=== PATIENT | female | born 1950 | race Caucasian/White ===

== ENCOUNTER 2018-08-25 10:45 | Inpatient (IN) | payer BC ==
[~2018-08-25] VITALS: Ht 167.6 cm; Wt 118.9 kg
[~2018-08-25 10:45] MED LIST: AMOXICILLIN500 MG PO; ASPIRIN PO; B-12500 MCG PO; CALCIUM 500 +1 EAC2; CITALOPRAM HBR40 MG PO; GLUCOSAMINE CH1 EAC5 PO; LIPITOR10 MG PO; LORAZEPAM2 MG PO; MELOXICAM7.5 MG PO; MULTIVITAMIN PO; RAMIPRIL10 MG PO; ULTRAM 50MG50 MG PO; VAGIFEM10 MCG PO
[2018-08-25] MEDS ORDERED: MULTIVITAMINS1 EAC5 PO (11:22)
[2018-08-25] MEDS ORDERED: METOPROLOL TART25 MG PO (11:22)
[2018-08-25] MEDS ORDERED: CLONAZEPAM0.5 MG PO (11:22)
[2018-08-25] MEDS ORDERED: FERROUS SULFAT325 MG PO (11:22)
[2018-08-25] MEDS ORDERED: COENZYME Q1010 MG PO (11:22)
[2018-08-25] MEDS ORDERED: SODIUM CHLORIDE 0.9% 1000ML 1,000 ML IV STA (11:48)
[2018-08-25 12:47] LABS: BASOPHILS # (AUTO) 0.1 (0.0-0.1); BASOPHILS % 0.5 % (0.0-1.0); EOSINOPHILS # (AUTO) 0.1 (0.0-0.4); EOSINOPHILS % 0.8 % (0.0-6.0); HEMATOCRIT 36.9 % (34.2-44.1); HEMOGLOBIN 12.6 g/dL (12.0-16.0); LYMPHOCYTES # (AUTO) 1.2 (1.0-3.2); LYMPHOCYTES % 9.6 % (18.0-39.1); MEAN CORPUSCULAR HEMOGLOBIN 32.4 pg (28-32); MEAN CORPUSCULAR HGB CONC 34.1 g/dL (31-35); MEAN CORPUSCULAR VOLUME 94.9 fL (81-99); MONOCYTES # (AUTO) 1.2 (0.2-0.8); MONOCYTES % 9.4 % (4.4-11.3); NEUTROPHILS # (AUTO) 10.2 (2.1-6.9); NEUTROPHILS % 79.3 % (38.7-80.0); PLATELET COUNT 289 x10e3/uL (140-360); RED BLOOD COUNT 3.89 x10e6/uL (3.6-5.1); RED CELL DISTRIBUTION WIDTH 11.5 % (11.7-14.4)
[2018-08-25 13:00] LABS: ALANINE AMINOTRANSFERASE 19 IU/L (0-55); ALBUMIN 2.7 g/dL (3.5-5.0); ALBUMIN/GLOBULIN RATIO 0.8 (0.8-2.0); ALKALINE PHOSPHATASE 64 IU/L (40-150); ANION GAP 13.9 mmol/L (8-16); BLOOD UREA NITROGEN 6 mg/dL (7-26); BUN/CREATININE RATIO 7 (6-25); CALCIUM 8.9 mg/dL (8.4-10.2); CARBON DIOXIDE 27 mmol/L (22-29); CHLORIDE 95 mmol/L (98-107); CREATININE, SERUM 0.84 mg/dL (0.57-1.11); EST GLOMERULAR FILTRATION RATE > 60 ML/MIN (60-); GLUCOSE 107 mg/dL (74-118); SODIUM 133 mmol/L (136-145)
[2018-08-25 13:10] LABS: POTASSIUM 2.9 mmol/L (3.5-5.1)
[2018-08-25 13:11] LABS: AMYLASE 16 U/L (25-125); LIPASE 8 U/L (8-78)
[2018-08-25] MEDS ORDERED: POTASSIUM CHLORIDE 20 MEQ TAB CR PO NR (13:45)
[2018-08-25 13:47] LABS: OCCULT BLOOD STOOL POSITIVE (NEGATIVE)
[2018-08-25 15:18] LABS: C DIFFICILE TOXIN A&B AMP PROB **POSITIVE** (NEGATIVE)
--- NOTE | 2018-08-25 15:40 | Diagnostic Imaging Report ---
EXAM: CT Abdomen and Pelvis WITH contrast INDICATION: ^low abd pain profuse diarrhea ^[id number] ^1430 ^N COMPARISON: None. TECHNIQUE: Abdomen and pelvis were scanned utilizing a multidetector helical scanner from the lung base to the pubic symphysis after administration of IV contrast. Coronal and sagittal reformations were obtained. Routine protocol was performed. Scan was performed when during portal venous phase. IV CONTRAST: 100 mL of Isovue-370 ORAL CONTRAST: Water RADIATION DOSE: Total DLP: 850.7 mGy*cm Estimated effective dose: (DLP x 0.015 x size factor) mSv COMPLICATIONS: None FINDINGS: LINES and TUBES: None. LOWER THORAX: Small to moderate hiatal hernia. HEPATOBILIARY: Hepatomegaly. The liver measures 24 cm in length in the craniocaudal dimension. No focal hepatic lesions. No biliary ductal dilation. GALLBLADDER: No radio-opaque stones or sludge. No wall thickening. SPLEEN: No splenomegaly. PANCREAS: No focal masses or ductal dilatation. ADRENALS: 1.5 cm indeterminate left adrenal gland nodule on series 2, image 23. The right adrenal gland is normal. KIDNEYS/URETERS: Kidneys enhance symmetrically. No hydronephrosis. No cystic or solid mass lesions. No stones. GI TRACT: Diffuse wall thickening of the sigmoid colon and rectum with surrounding fat stranding and hyperemia without diverticulosis. The remaining bowel is unremarkable. Appendix is normal. PELVIC ORGANS/BLADDER: Unremarkable. LYMPH NODES: No lymphadenopathy. VESSELS: The abdominal aorta and pelvic arteries are normal in caliber and associated with mild atherosclerotic calcifications. Bilateral renal stents. Patency cannot be evaluated on this exam. Celiac trunk and SMA are patent with associated mild nonobstructing atherosclerotic calcifications. PERITONEUM / RETROPERITONEUM: No free air or fluid. BONES: Right hip replacement. SOFT TISSUES: Calcified granulomata in the soft tissues of the right thigh likely related to prior injection. IMPRESSION: 1. Acute inflammatory versus infectious proctocolitis. Recommend follow-up CT abdomen and pelvis after treatment is completed. - No free air or free fluid in the abdomen and pelvis. - No diverticulosis. 2. Indeterminate left adrenal gland nodule (1.5 cm). Recommend ambulatory CT or MRI abdomen with and without contrast arteriogram protocol for further evaluation. Signed by: Dr. Mindy Agudelo M.D. on 08/25/2018 3:36 PM
[2018-08-25 16:28] LABS: BAND NEUTROPHILS % (MANUAL) 5 %; LYMPHOCYTES % (MANUAL) 12 % (19-48); MONOCYTES % (MANUAL) 5 % (3.4-9.0); NEUTROPHILS % (MANUAL) 77 % (40-74); PLATELET ESTIMATE ADEQUATE; PLATELET MORPHOLOGY COMMENT NORMAL; RBC MORPHOLOGY COMMENT NORMAL
[2018-08-25] MEDS ORDERED: METRONIDAZOLE 500MG/NS 100ML 100 ML IV ONE (16:40)
[2018-08-25] MEDS ORDERED: MORPHINE SULFATE 2 MG/ML SYR IV PRN (17:30)
[2018-08-25] MEDS: METRONIDAZOLE 500MG/NS 100ML IV SCH (17:37)
[2018-08-25] MEDS: VANCOMYCIN 250MG/5ML ORAL SOLN PO SCH (17:56)
[2018-08-25] MEDS: D5.45%NS/KCL 20MEQ 1,000 ML IV SCH (17:56)
--- OUTSIDE RECORDS SUMMARY | 2018-08-25 18:02 | XMS REPORT | Clinical Summary ---
Author Author [facility] Organization [facility] Address Unknown Phone Unavailable Care Team Providers Care Merchandise Deliverer Name Role Phone Laureen Miranda DO PCP Allergies Not on File Current Medications Not on file Active Problems Not on file Encounters Date Type Specialty Care Team Description 01/12/2018 [facility] Laureen Miranda, Transient arthropathy, Encounter pelvic region and thigh, right 01/12/2018 [facility] Radiology Laureen Miranda DO Low back pain, Encounter unspecified back pain laterality, unspecified chronicity, with sciatica presence unspecified 01/12/2018 [facility] Radiology Laureen Miranda DO Postmenopausal status Encounter (age-related) (natural) 01/12/2018 [facility] Laureen Miranda DO Low back pain, Orders unspecified back pain laterality, unspecified chronicity, with sciatica presence unspecified (Primary Dx); Transient arthropathy, pelvic region and thigh, right 01/11/2018 [facility] Laureen Miranda DO Postmenopausal status Orders (age-related) (natural) (Primary Dx) 11/10/2017 [facility] Radiology Laureen Miranda DO Screening breast Encounter examination 09/20/2017 [facility] Laureen Miranda DO Screening breast Orders examination (Primary Dx) after 08/24/2017 Social History Tobacco Use Types Packs/Day Years Used Date Never Assessed Sex Assigned at Date Recorded Not on file Last Filed Vital Signs Not on file Plan of Treatment Health Maintenance Due Date Last Done Comments CERVICAL CANCER SCREENING 1973 COLON CANCER SCREENING 2002 SHINGRIX VACCINE (#1) 2002 ZOSTER VACCINE 2012 PNEUMOCOCCAL 2017 POLYSACCHARIDE VACCINE AGE 65 AND OVER PNEUMOCOCCAL-13 2017 INFLUENZA VACCINE 05/18/2018 BREAST CANCER SCREENING 11/10/2019 11/10/2017 Procedures Procedure Name Priority Date/Time Associated Diagnosis Comments XR HIP 4 VIEWS RIGHT Routine 01/12/2018 Transient arthropathy, Results for this 12:26 PM CDT pelvic region and thigh, procedure are in the right results section. XR LUMBAR SPINE COMPLETE Routine 01/12/2018 Low back pain, Results for this 4+ VW 12:25 PM CDT unspecified back pain procedure are in the laterality, unspecified results section. chronicity, with sciatica presence unspecified BONE DENSITY Routine 01/12/2018 Postmenopausal status Results for this 11:42 AM CDT (age-related) (natural) procedure are in the results section. MAMMO SCREENING W CAD Routine 11/10/2017 Screening breast Results for this BILATERAL 10:44 AM NEWSAGENT examination procedure are in the results section. after 08/24/2017 Results * XR Hip 4 Views Right (01/12/2018 12:26 PM) Narrative Performed At Title:Right hip [facility] Reason for exam:M12.851 Other specific arthropathiesnot elsewhere classifiedright hip, ARTHRITISHIP Comparison studies: CT right hip Impression: 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 There is no breakage or displacement of the hardware. The sacroiliac joints are unremarkable. The iliac, pubic and ischial bones are unremarkable. The left hip is incidentally unremarkable. [id number] Procedure Note Hm Interface, Radiology Results Incoming - 01/12/2018 2:14 PM CDT Title:Right hip Reason for exam:M12.851 Other specific arthropathies not elsewhere classified right hip, ARTHRITIS HIP Comparison studies: CT right hip Impression: 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 There is no breakage or displacement of the hardware. The sacroiliac joints are unremarkable. The iliac, pubic and ischial bones are unremarkable. The left hip is incidentally unremarkable. [id number] Performing Organization Address City/State/Zipcode Phone Number [facility] [address] [place] [address] * XR Lumbar Spine Complete 4+ Vw (01/12/2018 12:25 PM) Narrative Performed At EXAMINATION:XR LUMBAR SPINE COMPLETE 4VW [facility] CLINICAL HISTORY:M54.5 Low back pain, LOW BACK PAINUNCOMPLICATEDNO RED FLAG SIGNS SYMPTOMS HISTORY COMPARISON:None. IMPRESSION: There is mild congenital lumbar spinal canal stenosis with decrease in the transverse diameter of the spinal canal. There is mild diffuse disc space narrowing throughout the lumbar spine. There is grade 1 degenerative anterolisthesis at L4-5 with prominent underlying facet joint degenerative changes especially on the right. There is mild levo rotoscoliosis. There is no evidence of compression fracture. [facility]-[id number] Procedure Note Hm Interface, Radiology Results Incoming - 01/12/2018 2:26 PM CDT EXAMINATION: XR LUMBAR SPINE COMPLETE 4 VW CLINICAL HISTORY: M54.5 Low back pain, LOW BACK PAIN UNCOMPLICATED NO RED FLAG SIGNS SYMPTOMS HISTORY COMPARISON: None. IMPRESSION: There is mild congenital lumbar spinal canal stenosis with decrease in the transverse diameter of the spinal canal. There is mild diffuse disc space narrowing throughout the lumbar spine. There is grade 1 degenerative anterolisthesis at L4-5 with prominent underlying facet joint degenerative changes especially on the right. There is mild levo rotoscoliosis. There is no evidence of compression fracture. [facility]-[id number] Performing Organization Address City/State/Zipcode Phone Number [facility] [address] [place] [address] * Bone Density (01/12/2018 11:42 AM) Narrative Performed At EXAMINATION:[facility] CLINICAL HISTORY:Z78.0 Asymptomatic menopausal state, postmenopausal status COMPARISON:None. The results of this study expressed as bone mineral density (BMD) were as follows: AP spine (L1-L4) BMD: 1.45 g/cm2 T-Score: 2.1 Percent change from previous:NA Dual Femur (Total Mean): BMD: 0.92 g/cm2 T-Score: -0.7 Percent change from previous:NA Forearm (Radius 33%): BMD: NA g/cm2 T-Score: NA Percent change from previous:NA Dual femur FRAX: Risk factors: Current tobacco use 10 year probability of fracture: 1.Major osteoporotic: 7.9% 2.Hip: 1.3% Impression: Bone mineral density values as above. No osteoporosis or osteopenia. A copy of this scans including a report detailing these results will follow. Note: The world health organization (WHO) has classified the patient's T-score as follows: Normal:T score at or above -1.0 Osteopenia:T score between -1.0 and -2.5 Osteoporosis:T score at or below -2.5 (osteoporosis, increased fracture risk) [facility]-[id number] Procedure Note Interface, Radiology Results Incoming - 01/12/2018 3:41 PM CDT EXAMINATION: BONE DENSITY CLINICAL HISTORY: Z78.0 Asymptomatic menopausal state, postmenopausal status COMPARISON: None. The results of this study expressed as bone mineral density (BMD) were as follows: AP spine (L1-L4) BMD: 1.45 g/cm2 T-Score: 2.1 Percent change from previous: NA Dual Femur (Total Mean): BMD: 0.92 g/cm2 T-Score: -0.7 Percent change from previous: NA Forearm (Radius 33%): BMD: NA g/cm2 T-Score: NA Percent change from previous: NA Dual femur FRAX: Risk factors: Current tobacco use 10 year probability of fracture: 1. Major osteoporotic: 7.9% 2. Hip: 1.3% Impression: Bone mineral density values as above. No osteoporosis or osteopenia. A copy of this scans including a report detailing these results will follow. Note: The world health organization (WHO) has classified the patient's T-score as follows: Normal: T score at or above -1.0 Osteopenia: T score between -1.0 and -2.5 Osteoporosis: T score at or below -2.5 (osteoporosis, increased fracture risk) [facility]-[id number] Performing Organization Address City/State/Zipcode Phone Number [facility] [address] [place] [address] * Mammo Screening w Cad Bilateral (11/10/2017 10:44 AM) Narrative Performed At PROCEDURE: MAMMO [facility]CREENING [facility] CAD [facility]AL [facility] Computer-assisted detection was utilized inthe interpretation of this exam. COMPARISON: No prior outside facility mammograms from [facility] TECHNIQUE: Bilateral digital screening mammogram was performed and interpreted using computer-assisted detection. HISTORY: Asymptomatic routine screening. Family History: No known family history. FINDINGS: BreastComposition: There are scattered areas of fibroglandular density ( category B). No suspicious mass , architectural distortion or suspicious microcalcifications are present. There are scattered bilateral benign morphology breast calcifications. IMPRESSION: No mammographic evidence of malignancy. Birads Category 2. Benign. RECOMMENDATIONS:If the clinical breast examination is unchanged and normal , annual screening mammography is recommended per ACS and ACR guidelines. PATIENT INFORMATION HAS BEEN ENTERED INTO A REMINDER SYSTEM WITH TARGET DUE DATE FOR THE NEXT MAMMOGRAM. NOTE: This facility is a designated [facility] ( [facility]) , meeting standards of accreditation in all modalities of breast imaging. This facility is accredited by The [employer] for Mammography. A negative x-ray report should not delay biopsy if a dominant or clinically suspicious mass is present. Not all cancers are identified by x-ray. [id number] Performing Organization Address City/State/Zipcode Phone Number [employer] [address] [place] [address] after 08/24/2017 Insurance Payer Benefit Subscriber ID Type Phone Address Plan / Group BCBS BCBS xxxxxxxxxxxx PPO CHOICE PPO/[employer] [employer] PPO
--- OUTSIDE RECORDS SUMMARY | 2018-08-25 18:02 | XMS REPORT ---
Author Author Admin, Friend[facility] Organization [facility] Address Unknown Phone Unavailable Allergies, Adverse Reactions, Alerts Allergy Name Reaction Description Start Date Severity Status Provider No Known Allergies Adrianna Xie SHOVEL LOADER OPERATOR Conditions or Problems Problem Name Problem Code Onset Date Status Entry Date Provider Comment Standard Description Annotate Hidradenitis suppurativa 705.83 Active Laureen Krish Pariani DO Hidradenitis Hx of colon polyps V12.72 Active Laureen Krish Pariani DO Personal history of colonic polyps gets colonoscopy q 2 yrs per ptn Screening for ovarian cancer V76.46 Active Laureen Krish Pariani DO Screening for malignant neoplasms of the ovary Screening Pap smear exam for cervical cancer V76.2 Active Laureen Krish Pariani DO Screening for malignant neoplasms of the cervix Sebaceous cyst 706.2 Active Laureen Krish Pariani DO Sebaceous cyst Aortic stenosis 424.1 Active Laureen Krish Pariani DO Aortic valve disorders 07/02 Echo: mod (WYATT 1.1 cm) Cards: Dr. Murphy Asymptomatic postmenopausal status (age-related) (natural) V49.81 Active Laureen Krish Agudeloani DO Asymptomatic postmenopausal status (age-related) (natural) CAD 414.00 Active Laureen Krish Jammieani DO Coronary atherosclerosis of unspecified type of vessel, [place] or graft Cards: Dr. Murphy 10/27 CathL 60-70 % dominant LCX stenosis rec: med mgnt Diastolic dysfunction 429.9 Active Laureenquin Miranda DO Heart disease, unspecified 03/03 Echo: Grade 2 diastolic dysfn Hip joint pain, left 719.45 Active Laureen Miranda DO Pain in joint involving pelvic region and thigh s/p R hip joint replacement Ortho: Dr. Xie (old) Ortho: Dr. Irizarry (new) Incontinence, mixed, urge/stress 788.33 Active Laureen Miranda DO Mixed incontinence (female) (male) wears pads at night Uro: Dr. Zapien Lower back pain 724.2 Active Laureen Miranda DO Lumbago 01/02 xray: grade 1 degen anterolisthesis @ L5-L5 w/ promiment underlying facet joint degen changes on the R Obesity Active Laureen Rutherford Jammiejoss DO Obesity, unspecified PVC 427.69 Active Laureen Miranda DO Other premature beats Cards: Dr. Murphy Anxiety 300.00 Active Laureen Miranda Anxiety state, unspecified Psychiatry: Dr. Moe Choi 01/10/18 GAD7=4 (tx: Citalopram 80 mg, Clonazepam 2mg TID) Arthritis, right hip 716.95 Active Laureen Miranda Arthropathy unspecified, involving pelvic region and thigh s/p R hip replacment regular water aerobics Depression 311 Active Laureen Miranda Depressive disorder, not elsewhere classified Psychiatry: Dr. 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 Giana Hodge Hx of iron deficiency anemia V12.3 Active Laureen Miranda DO Personal history of diseases of blood and blood-forming organs Hypercholesterolemia 272.0 Active Laureen Miranda DO Pure hypercholesterolemia 09/03 Low HDL Hypertension 401.9 Active Laureen Miranda DO Unspecified essential hypertension Cardio: Dr. Burke Murphy [facility] care V70.0 Active Laureen Miranda DO Routine general medical examination at a health care facility refuses vaccines Screening mammogram for breast cancer V76.12 Active Laureen Miranda DO Other screening mammogram Tobacco user 305.1 Active Laureen Miranda DO Tobacco use disorder 1-1.5 pack/day >30yrs Stress incontinence 788.39 Inactive Laureen Miranda DO Other urinary incontinence wears pads Female urinary stress incontinence ICD-625.6 Inactive Laureen Krish Pariani DO Total hip arthroplasty, right ICD-V43.64 Inactive Laureen Agudeloani DO Female urinary stress incontinence 625.6 Resolved Laureen Miranda DO Stress incontinence, female wears pads Total hip arthroplasty, right V43.64 Resolved Laureen Miranda DO Hip joint replaced by other means Ortho: Dr. Xie Medication List Medication Instructions Start Date Stop Date Generic Name NDC Status Provider Patient Instruction MYRBETRIQ 50 MG ORAL TABLET EXTENDED RELEASE 24 HOUR take 1 tab By Mouth Every at bedtime MIRABEGRON 14913527688 Active Laureen Miranda DO Active CENTRUM SILVER 50+WOMEN ORAL TABLET Take one tab By Mouth Every Day MULTIPLE VITAMINS-MINERALS 38181631650 Active Laureen Krish Miranda DO Active COQ10 200 MG ORAL CAPSULE Take one capsule By Mouth Every Day COENZYME Q10 86787675985 Active Laureen Miranda DO Active ALEVE 220 MG ORAL TABLET Take 2 tabs By Mouth Every 12 hrs As Needed for pain. Do not exceed 3 tabs in 24 hrs. NAPROXEN SODIUM 62250121990 Active Laureen Krish Miranda DO Active ASPIRIN 81 MG ORAL TABLET Take one tab By Mouth Every Day ASPIRIN 14026307412 Active Laureen Krish Miranda DO Active CALCIUM 500-125 MG-UNIT ORAL TABLET Take one tab By Mouth Every Day for bone health CALCIUM CARBONATE-VITAMIN D 49650387812 Active Laureen Krish Ruben DO Active FERROUS SULFATE 325 (65 FE) MG ORAL TABLET Take one tab By Mouth Every Day for iron deficiency FERROUS SULFATE 37389611336 Active Laureen Agudelojoss DO Active GLUCOSAMINE CHONDROITIN JOINT ORAL TABLET Take one tab By Mouth Every Day for your joints (hip) [id number] 81726057182 Active Laureen Agudelojoss DO Active VITAMIN B-12 500 MCG ORAL TABLET Take one tab By Mouth Every Day for energy CYANOCOBALAMIN 40918345703 Active Laureen Agudelojoss DO Active CITALOPRAM HYDROBROMIDE 40 MG ORAL TABLET TK 2 TS PO QHS for depression CITALOPRAM HYDROBROMIDE 31121701110 Active Laureen Agudelojoss DO Active CLONAZEPAM 2 MG ORAL TABLET TK 1/2 TO 1 T PO TID PRF ANXIETY CLONAZEPAM 69614675762 Active Laureen Agudelojoss DO Active RAMIPRIL 10 MG ORAL CAPSULE TK 1 C PO Every Day for blood pressure RAMIPRIL 30162356357 Active Laureen Agudelojoss DO Active METOPROLOL SUCCINATE ER 25 MG ORAL TABLET EXTENDED RELEASE 24 HOUR Take one tab By Mouth Every Day at bedtime for blood pressure METOPROLOL SUCCINATE 35851081659 Active Laureen Agudelojoss DO Active ATORVASTATIN CALCIUM 10 MG ORAL TABLET Take one tab By Mouth Every Day at bedtime for Cholesterol ATORVASTATIN CALCIUM 46431692288 Active Laureen Agudelojoss DO Active Vital Signs Date Name Value Unit Range Description blood pressure, diastolic 77 mm[Hg] BP figueroa blood pressure, systolic 138 mm[Hg] BP sys height E&M 65.50 [in_us] Bdy height pulse rate E&M 53 /min Heart rate respiratory rate E&M 17 /min Resp rate temperature E&M 98.6 [degF] Body temperature weight E&M 240.40 [lb_av] Weight Measured blood pressure, diastolic 73 mm[Hg] BP figueroa blood pressure, systolic 135 mm[Hg] BP sys height E&M 65.50 [in_us] Bdy height pulse rate E&M 68 /min Heart rate respiratory rate E&M 18 /min Resp rate temperature E&M 98.1 [degF] Body temperature weight E&M 237.40 [lb_av] Weight Measured blood pressure, diastolic 73 mm[Hg] BP figueroa blood pressure, systolic 116 mm[Hg] BP sys height E&M 65.50 [in_us] Bdy height pulse rate E&M 55 /min Heart rate respiratory rate E&M 18 /min Resp rate temperature E&M 98.9 [degF] Body temperature weight E&M 233.80 [lb_av] Weight Measured blood pressure, diastolic 74 mm[Hg] BP figueroa blood pressure, systolic 120 mm[Hg] BP sys height E&M 65.5 [in_us] Bdy height pulse rate E&M 66 /min Heart rate respiratory rate E&M 19 /min Resp rate temperature E&M 98.3 [degF] Body temperature weight E&M 234 [lb_av] Weight Measured Diagnostic Results Date Name Value Unit Range Description Office Visit: established - Urinalysis nitrite, urine, semiquantitative negative urobilinogen, urine, semiquantitative (dipstick) 0.2 specific gravity, urine 1.010 pH, urine, semiquantitative 5.0 bilirubin, urine negative Office Visit: Acute Visit - Lab Human Papillomavirus test result Positive Office Visit: established - Urinalysis leukocyte esterase, urine, by dipstick negative appearance, urine clear protein, urine, semiquantitative (dipstick) negative blood in urine (hemoglobin) by dipstick negative glucose, urine, semiquantitative negative urine color yellow ketones, urine, by test strip negative Encounters Date Encounter Provider Code Facility 11:33:40 CDT Est Patient Detailed - [id number] Laureen Miranda DO [facility]-[id number] [facility] 11:54:41 CDT Est Patient Detailed - [id number] Laureen Agudeloani DO [facility]-[id number] [facility] 22:48:29 BLOCK INSPECTOR New Patient Comprehensive - [id number] Laureen Krish Agudeloani DO [facility]-46097 [facility] 22:37:14 BLOCK INSPECTOR Est Patient Detailed - [id number] Laureen Krishloyda Agudeloani DO [facility]-[id number] [facility] Procedures Code Procedure Name Date Entry Date Standard Description CPT-90774 Est Patient Well Exam (65 & Over) - [id number] 20:03:31 CDT CPT-88382 Urinalysis - Dip only - In House 18:21:07 CDT CPT-62411 Urinalysis - Dip only - In House 00:32:23 CDT
--- OUTSIDE RECORDS SUMMARY | 2018-08-25 18:02 | XMS REPORT ---
Author Author [facility] Address Unknown Phone Unavailable Care Team Providers Care Sight Effects Specialist Name Role Phone Sabrina SHIELDS Unavailable Unavailable Problems This patient has no known problems. Allergies, Adverse Reactions, Alerts This patient has no known allergies or adverse reactions. Medications This patient has no known medications. Results Test Description Test Time Test Comments Text Results Atomic Results Result Comments CT ABDOMEN/PELVIS W 2018-08-25 15:19:00 [place] [address] Patient Name: BEST BRUNO MR #: [id number] : 1950 Age/Sex: 67/F Req #: [id number] Adm Physician: Ordered by: JHON SHIELDS MD Report #: [id number] Location: ER Room/Bed: Procedure: [id number] CT/CT ABDOMEN/PELVIS W Exam Date: 08/25/18 Exam Time: 1430 REPORT STATUS: Signed EXAM: CT Abdomen and Pelvis WITH contrast INDICATIO N: low abd pain profuse diarrhea [id number] N COMPARISON: None. TECHNIQUE: Abdomen and pelvis were scanned utilizing a multidetector helical scanner from the lung base to the pubic symphysis after administration of IV contrast. Coronal and sagittal reformations were obtained. Routine protocol was performed. Scan was performed when during portal venous phase. IV CONTRAST: 100 mL of Isovue-370 ORAL CONTRAST: Water RADIATION DOSE: Total DLP: 850.7 mGy*cm Estimated effective dose: (DLP x 0.015 x size factor) mSv COMPLICATIONS: None FINDINGS: LINES and TUBES: None. LOWER THORAX: Small to moderate hiatal hernia. HEPATOBILIARY: Hepatomegaly. The liver measures 24 cm in length in the craniocaudal dimension. No focal hepatic lesions. No biliary ductal dilation. GALLBLADDER: No radio-opaque stones or sludge. No wall thickening. SPLEEN: No splenomegaly. PANC REAS: No focal masses or ductal dilatation. ADRENALS: 1.5 cm indeterminate left adrenal gland nodule on series 2, image 23. The right adrenal gland is normal. KIDNEYS/URETERS: Kidneys enhance symmetrically. No hydronephrosis. No cystic or solid mass lesions. No stones. GI TRACT: Diffuse wall thickening of the sigmoid colon and rectum with surrounding fat stranding and hyperemia without diverticulosis. The remaining bowel is unremarkable. Appendix is normal. PELVIC ORGANS/BLADDER: Unremarkable. LYMPH NODES: No lymphadenopathy. VESSELS: The abdominal aorta and pelvic arteries are normal in caliber and associated with mild atherosclerotic calcifications. Bilateral renal stents. Patency cannot be evaluated on this exam. Celiac trunk and SMA are patent with associated mild nonobstructing atherosclerotic calcifications. PERITONEUM / RETROPERITONEUM: No free air or fluid. BONES: Right hip replacement. SOFT TISSUES: Calcified granulomata in the soft tissues of the right thigh likely related to prior injection. IMPRESSION: 1. Acute inflammatory versus infectious proctocolitis. Recommend follow-up CT abdomen and pelvis after treatment is completed. - No free air or free fluid in the abdomen and pelvis. - No diverticulosis. 2. Indeterminate left adrenal gland nodule (1.5 cm). Recommend ambulatory CT or MRI abdomen with and without contrast arteriogram protocol for further evaluation. Signed by: Dr. Alisson Sorto M.D. on 08/25/2018 3:36 PM Dictated By: ALISSON SORTO MD [id number] Transcribed By: BENJAMÍN on 08/25/18 1536 COPY TO: JHON SHIELDS MD
[2018-08-25] MEDS ORDERED: LORAZEPAM 1 MG TAB PO ONE (18:15)
[2018-08-25] MEDS ORDERED: IOPAMIDOL 370 MG/ML 200 ML INFUS..BTL INJ ONE (18:43)
[2018-08-25] MEDS ORDERED: SODIUM CHLORIDE 0.9% 50ML 50 ML ONE (18:43)
[2018-08-25 19:50] VITALS: BP 158/71
[2018-08-25 20:00] VITALS: BP 158/71
[2018-08-25] MEDS: CITALOPRAM HYDROBROMIDE 20 MG TAB PO SCH (21:23)
[2018-08-25 23:59] VITALS: BP 158/71
[2018-08-26] VITALS (8 sets, daily range): BP systolic 120–165; BP diastolic 57–75
[2018-08-26] MEDS: VANCOMYCIN 250MG/5ML ORAL SOLN PO SCH ×5 (01:08→23:46)
[2018-08-26] MEDS: METRONIDAZOLE 500MG/NS 100ML IV SCH ×5 (01:08→23:46)
[2018-08-26 05:46] LABS: BASOPHILS # (AUTO) 0.1 (0.0-0.1); BASOPHILS % 0.5 % (0.0-1.0); EOSINOPHILS # (AUTO) 0.2 (0.0-0.4); EOSINOPHILS % 1.8 % (0.0-6.0); LYMPHOCYTES % 8.2 % (18.0-39.1); MEAN CORPUSCULAR HEMOGLOBIN 31.9 pg (28-32); MEAN CORPUSCULAR HGB CONC 34.3 g/dL (31-35); MEAN CORPUSCULAR VOLUME 93.1 fL (81-99); MONOCYTES # (AUTO) 1.3 (0.2-0.8); MONOCYTES % 10.2 % (4.4-11.3); NEUTROPHILS # (AUTO) 10.1 (2.1-6.9); NEUTROPHILS % 78.8 % (38.7-80.0); PLATELET COUNT 268 x10e3/uL (140-360); RED BLOOD COUNT 3.76 x10e6/uL (3.6-5.1); RED CELL DISTRIBUTION WIDTH 11.4 % (11.7-14.4)
[2018-08-26] MEDS ORDERED: CLONAZEPAM1 MG PO (06:07)
[2018-08-26 06:10] LABS: ANION GAP 15.9 mmol/L (8-16); BLOOD UREA NITROGEN < 5 mg/dL (7-26); CALCIUM 8.7 mg/dL (8.4-10.2); CARBON DIOXIDE 22 mmol/L (22-29); CHLORIDE 99 mmol/L (98-107); CREATININE, SERUM 0.76 mg/dL (0.57-1.11); EST GLOMERULAR FILTRATION RATE > 60 ML/MIN (60-); GLUCOSE 155 mg/dL (74-118); SODIUM 134 mmol/L (136-145)
[2018-08-26 06:16] LABS: BUN/CREATININE RATIO 7 (6-25)
[2018-08-26 06:19] LABS: POTASSIUM 2.9 mmol/L (3.5-5.1)
[2018-08-26] MEDS: CITALOPRAM HYDROBROMIDE 20 MG TAB PO SCH ×2 (08:58→20:35)
[2018-08-26] MEDS: NICOTINE 21 MG/EA PATCH TOP SCH (08:58)
[2018-08-26 09:04] LABS: ANISOCYTOSIS SLIGHT; EOSINOPHILS % (MANUAL) 3 % (0-7); HYPOCHROMASIA SLIGHT; LYMPHOCYTES % (MANUAL) 7 % (19-48); MONOCYTES % (MANUAL) 8 % (3.4-9.0); NEUTROPHILS % (MANUAL) 80 % (40-74); PLATELET ESTIMATE ADEQUATE; PLATELET MORPHOLOGY COMMENT NORMAL; RBC MORPHOLOGY COMMENT NORMAL
[2018-08-26] MEDS ORDERED: POTASSIUM CHLORIDE 20 MEQ TAB CR PO SCH (12:00)
[2018-08-26] MEDS: POTASSIUM CHLORIDE 20 MEQ TAB CR PO SCH ×4 (12:18→17:18)
[2018-08-26] MEDS: D5.45%NS/KCL 20MEQ 1,000 ML IV SCH (12:39)
[2018-08-26 14:35] LABS: BILIRUBIN,URINE NEGATIVE (NEGATIVE); CLARITY,URINE CLEAR (CLEAR); COLOR,URINE YELLOW (YELLOW); KETONES,URINE NEGATIVE (NEGATIVE); LEUKOCYTE ESTERASE ,URINE NEGATIVE (NEGATIVE); NITRITE,URINE NEGATIVE (NEGATIVE); PROTEIN,URINE DIPSTICK NEGATIVE (NEGATIVE); URINE UROBILINOGEN 0.2 mg/dL (0.2 - 1)
[2018-08-26 14:54] LABS: AMORPHOUS SEDIMENT,URINE MODERATE (FEW); BACTERIA,URINE MANY /HPF; EPITHELIAL CELLS,URINE FEW /LPF
[2018-08-26] MEDS: METOPROLOL TARTRATE 25 MG TAB PO SCH (20:35)
[2018-08-26] MEDS: CLONAZEPAM 1 MG TAB PO SCH (20:35)
[2018-08-26] MEDS: ONDANSETRON HCL INJ 2 MG/ML VIAL IV PRN (20:47)
[2018-08-26] MEDS: MORPHINE SULFATE INJ 4 MG/ML INJ IV PRN (20:47)
[2018-08-27] VITALS (7 sets, daily range): BP systolic 99–125; BP diastolic 51–59
[2018-08-27] MEDS: D5.45%NS/KCL 20MEQ 1,000 ML IV SCH ×2 (02:59→10:08)
[2018-08-27] MEDS: METRONIDAZOLE 500MG/NS 100ML IV SCH ×3 (05:55→18:20)
[2018-08-27] MEDS: VANCOMYCIN 250MG/5ML ORAL SOLN PO SCH ×3 (05:55→18:20)
[2018-08-27 06:31] LABS: ANION GAP 13.8 mmol/L (8-16); BLOOD UREA NITROGEN < 5 mg/dL (7-26); BUN/CREATININE RATIO 6 (6-25); CALCIUM 8.7 mg/dL (8.4-10.2); CARBON DIOXIDE 26 mmol/L (22-29); CHLORIDE 105 mmol/L (98-107); CREATININE, SERUM 0.79 mg/dL (0.57-1.11); EST GLOMERULAR FILTRATION RATE > 60 ML/MIN (60-); GLUCOSE 108 mg/dL (74-118); POTASSIUM 3.8 mmol/L (3.5-5.1); SODIUM 141 mmol/L (136-145)
[2018-08-27] MEDS ORDERED: ATORVASTATIN 10 MG TAB PO SCH (09:00)
[2018-08-27] MEDS ORDERED: ASPIRIN 81 MG ENTERIC COATED PO SCH (09:00)
[2018-08-27] MEDS ORDERED: NON-FORMULARY MEDICATION (Citalopram Hydrobromide (Citalopram Hbr) 40 MG) PO SCH (09:00)
[2018-08-27] MEDS ORDERED: NON-FORMULARY MEDICATION (Ramipril 10 MG) PO SCH (09:00)
[2018-08-27] MEDS ORDERED: CITALOPRAM HYDROBROMIDE 20 MG TAB PO SCH (09:00)
[2018-08-27] MEDS ORDERED: [UNRECOGNIZED DRUG - OTHER] PO SCH (09:00)
[2018-08-27] MEDS ORDERED: RAMIPRIL 5 MG CAP PO SCH (09:00)
[2018-08-27] MEDS ORDERED: ASPIRIN PO SCH (09:00)
[2018-08-27] MEDS: UBIDECARENONE 10 MG PO SCH (09:00)
[2018-08-27] MEDS: CITALOPRAM HYDROBROMIDE 20 MG TAB PO SCH ×2 (09:00→20:48)
[2018-08-27] MEDS: MULTIVITAMINS/MINERALS TAB PO SCH (09:12)
[2018-08-27] MEDS: FERROUS SULFATE 325 MG TAB PO SCH (09:12)
[2018-08-27] MEDS: NICOTINE 21 MG/EA PATCH TOP SCH (10:08)
[2018-08-27] MEDS: CEFTRIAXONE SOD 1 GM VIAL IV SCH (15:30)
[2018-08-27] MEDS: POTASSIUM CHLORIDE 20 MEQ TAB CR PO SCH (17:00)
[2018-08-27] MEDS: ASPIRIN 81 MG ENTERIC COATED PO SCH (20:48)
[2018-08-27] MEDS: ATORVASTATIN 10 MG TAB PO SCH (20:48)
[2018-08-27] MEDS: CLONAZEPAM 1 MG TAB PO SCH (20:48)
[2018-08-27] MEDS: RAMIPRIL 5 MG CAP PO SCH (20:48)
[2018-08-27] MEDS: METOPROLOL TARTRATE 25 MG TAB PO SCH (20:49)
[2018-08-27] MEDS: LOPERAMIDE HCL 2 MG CAP PO PRN (20:50)
[2018-08-27] MEDS: MORPHINE SULFATE INJ 4 MG/ML INJ IV PRN (22:11)
[2018-08-28] VITALS (7 sets, daily range): BP systolic 94–124; BP diastolic 54–63
[2018-08-28] MEDS: METRONIDAZOLE 500MG/NS 100ML IV SCH ×5 (00:20→23:51)
[2018-08-28] MEDS: VANCOMYCIN 250MG/5ML ORAL SOLN PO SCH ×5 (00:20→23:51)
[2018-08-28] MEDS ORDERED: DICYCLOMINE HCL 20 MG TAB PO ONE (00:45)
[2018-08-28] MEDS: CEFTRIAXONE SOD 1 GM VIAL IV SCH ×2 (03:48→15:40)
[2018-08-28 07:42] LABS: BASOPHILS # (AUTO) 0.1 (0.0-0.1); BASOPHILS % 0.6 % (0.0-1.0); EOSINOPHILS # (AUTO) 0.3 (0.0-0.4); HEMATOCRIT 37.6 % (34.2-44.1); HEMOGLOBIN 12.4 g/dL (12.0-16.0); LYMPHOCYTES # (AUTO) 1.8 (1.0-3.2); LYMPHOCYTES % 17.3 % (18.0-39.1); MEAN CORPUSCULAR HEMOGLOBIN 32.1 pg (28-32); MEAN CORPUSCULAR VOLUME 97.4 fL (81-99); MONOCYTES # (AUTO) 0.8 (0.2-0.8); MONOCYTES % 7.9 % (4.4-11.3); NEUTROPHILS # (AUTO) 7.3 (2.1-6.9); NEUTROPHILS % 70.4 % (38.7-80.0); PLATELET COUNT 376 x10e3/uL (140-360); RED BLOOD COUNT 3.86 x10e6/uL (3.6-5.1); RED CELL DISTRIBUTION WIDTH 11.7 % (11.7-14.4)
[2018-08-28 08:02] LABS: ALANINE AMINOTRANSFERASE 19 IU/L (0-55); ALBUMIN 2.7 g/dL (3.5-5.0); ALBUMIN/GLOBULIN RATIO 0.8 (0.8-2.0); ALKALINE PHOSPHATASE 53 IU/L (40-150); ANION GAP 14.1 mmol/L (8-16); BLOOD UREA NITROGEN < 5 mg/dL (7-26); CALCIUM 8.8 mg/dL (8.4-10.2); CARBON DIOXIDE 24 mmol/L (22-29); CHLORIDE 104 mmol/L (98-107); CREATININE, SERUM 0.79 mg/dL (0.57-1.11); EST GLOMERULAR FILTRATION RATE > 60 ML/MIN (60-); GLUCOSE 95 mg/dL (74-118); POTASSIUM 3.1 mmol/L (3.5-5.1); SODIUM 139 mmol/L (136-145)
[2018-08-28 08:05] LABS: BUN/CREATININE RATIO 6 (6-25)
[2018-08-28] MEDS: DICYCLOMINE HCL 10 MG CAP PO SCH ×3 (08:40→22:16)
[2018-08-28] MEDS: FERROUS SULFATE 325 MG TAB PO SCH (08:40)
[2018-08-28] MEDS: MULTIVITAMINS/MINERALS TAB PO SCH (08:40)
[2018-08-28] MEDS: NICOTINE 21 MG/EA PATCH TOP SCH (08:42)
[2018-08-28] MEDS: UBIDECARENONE 10 MG PO SCH (09:00)
[2018-08-28] MEDS: CITALOPRAM HYDROBROMIDE 20 MG TAB PO SCH ×2 (09:00→21:00)
[2018-08-28] MEDS: LOPERAMIDE HCL 2 MG CAP PO PRN (09:30)
[2018-08-28] MEDS ORDERED: POTASSIUM CHLORIDE 10MEQ EA PO ONE ×3 (12:15→15:30)
[2018-08-28] MEDS: POTASSIUM CHLORIDE 20 MEQ TAB CR PO SCH (18:10)
[2018-08-28] MEDS: CLONAZEPAM 1 MG TAB PO SCH (21:00)
[2018-08-28] MEDS: RAMIPRIL 5 MG CAP PO SCH (21:00)
[2018-08-28] MEDS: ASPIRIN 81 MG ENTERIC COATED PO SCH (21:00)
[2018-08-28] MEDS: ATORVASTATIN 10 MG TAB PO SCH (21:00)
[2018-08-28] MEDS: METOPROLOL TARTRATE 25 MG TAB PO SCH (21:00)
[2018-08-28] MEDS ORDERED: DIPHENOXYLATE/ATROPINE TAB PO STA (22:51)
[2018-08-29] VITALS (8 sets, daily range): BP systolic 100–115; BP diastolic 51–61
[2018-08-29] MEDS: CEFTRIAXONE SOD 1 GM VIAL IV SCH ×2 (03:56→15:31)
[2018-08-29 05:43] LABS: BASOPHILS % 0.4 % (0.0-1.0); EOSINOPHILS # (AUTO) 0.3 (0.0-0.4); EOSINOPHILS % 3.5 % (0.0-6.0); HEMATOCRIT 35.3 % (34.2-44.1); HEMOGLOBIN 11.6 g/dL (12.0-16.0); LYMPHOCYTES # (AUTO) 1.5 (1.0-3.2); LYMPHOCYTES % 20.6 % (18.0-39.1); MEAN CORPUSCULAR HEMOGLOBIN 32.5 pg (28-32); MEAN CORPUSCULAR HGB CONC 32.9 g/dL (31-35); MEAN CORPUSCULAR VOLUME 98.9 fL (81-99); MONOCYTES # (AUTO) 0.7 (0.2-0.8); MONOCYTES % 9.3 % (4.4-11.3); NEUTROPHILS # (AUTO) 4.8 (2.1-6.9); NEUTROPHILS % 63.9 % (38.7-80.0); PLATELET COUNT 322 x10e3/uL (140-360); RED BLOOD COUNT 3.57 x10e6/uL (3.6-5.1); RED CELL DISTRIBUTION WIDTH 11.6 % (11.7-14.4)
[2018-08-29 05:59] LABS: ALANINE AMINOTRANSFERASE 22 IU/L (0-55); ALBUMIN 2.4 g/dL (3.5-5.0); ALBUMIN/GLOBULIN RATIO 0.9 (0.8-2.0); ALKALINE PHOSPHATASE 52 IU/L (40-150); ANION GAP 7.7 mmol/L (8-16); BLOOD UREA NITROGEN 5 mg/dL (7-26); BUN/CREATININE RATIO 6 (6-25); CALCIUM 7.8 mg/dL (8.4-10.2); CARBON DIOXIDE 30 mmol/L (22-29); CHLORIDE 105 mmol/L (98-107); CREATININE, SERUM 0.89 mg/dL (0.57-1.11); EST GLOMERULAR FILTRATION RATE > 60 ML/MIN (60-); GLUCOSE 91 mg/dL (74-118); POTASSIUM 3.7 mmol/L (3.5-5.1); SODIUM 139 mmol/L (136-145)
[2018-08-29] MEDS: METRONIDAZOLE 500MG/NS 100ML IV SCH ×4 (06:26→23:56)
[2018-08-29] MEDS: VANCOMYCIN 250MG/5ML ORAL SOLN PO SCH ×4 (06:26→23:56)
[2018-08-29] MEDS: CITALOPRAM HYDROBROMIDE 20 MG TAB PO SCH ×2 (09:00→20:26)
[2018-08-29] MEDS: UBIDECARENONE 10 MG PO SCH (09:00)
[2018-08-29 09:15] LABS: EOSINOPHILS % (MANUAL) 3 % (0-7); LYMPHOCYTES % (MANUAL) 21 % (19-48); MONOCYTES % (MANUAL) 10 % (3.4-9.0); NEUTROPHILS % (MANUAL) 65 % (40-74)
[2018-08-29 09:16] LABS: PLATELET ESTIMATE ADEQUATE; PLATELET MORPHOLOGY COMMENT NORMAL; RBC MORPHOLOGY COMMENT NORMAL
[2018-08-29] MEDS: DICYCLOMINE HCL 20 MG TAB PO SCH ×4 (09:29→20:22)
[2018-08-29] MEDS: FERROUS SULFATE 325 MG TAB PO SCH (09:30)
[2018-08-29] MEDS: NICOTINE 21 MG/EA PATCH TOP SCH (09:30)
[2018-08-29] MEDS: MULTIVITAMINS/MINERALS TAB PO SCH (09:30)
[2018-08-29] MEDS: POTASSIUM CHLORIDE 20 MEQ TAB CR PO SCH (16:35)
[2018-08-29] MEDS: ONDANSETRON HCL INJ 2 MG/ML VIAL IV PRN (20:22)
[2018-08-29] MEDS: MORPHINE SULFATE INJ 4 MG/ML INJ IV PRN (20:22)
[2018-08-29] MEDS: RAMIPRIL 5 MG CAP PO SCH (20:24)
[2018-08-29] MEDS: ASPIRIN 81 MG ENTERIC COATED PO SCH (20:25)
[2018-08-29] MEDS: CLONAZEPAM 1 MG TAB PO SCH (20:26)
[2018-08-29] MEDS: ATORVASTATIN 10 MG TAB PO SCH (20:26)
[2018-08-29] MEDS: METOPROLOL TARTRATE 25 MG TAB PO SCH (20:27)
[2018-08-30] VITALS (8 sets, daily range): BP systolic 114–145; BP diastolic 58–66
[2018-08-30] MEDS: CEFTRIAXONE SOD 1 GM VIAL IV SCH ×2 (02:36→15:13)
[2018-08-30] MEDS: METRONIDAZOLE 500MG/NS 100ML IV SCH ×3 (05:13→18:05)
[2018-08-30] MEDS: VANCOMYCIN 250MG/5ML ORAL SOLN PO SCH ×3 (05:13→18:05)
[2018-08-30] MEDS: CITALOPRAM HYDROBROMIDE 20 MG TAB PO SCH ×2 (09:00→20:15)
[2018-08-30] MEDS: UBIDECARENONE 10 MG PO SCH (09:00)
[2018-08-30] MEDS: MULTIVITAMINS/MINERALS TAB PO SCH (09:32)
[2018-08-30] MEDS: FERROUS SULFATE 325 MG TAB PO SCH (09:32)
[2018-08-30] MEDS: DICYCLOMINE HCL 20 MG TAB PO SCH ×4 (09:32→20:15)
[2018-08-30] MEDS: NICOTINE 21 MG/EA PATCH TOP SCH (09:33)
[2018-08-30] MEDS: POTASSIUM CHLORIDE 20 MEQ TAB CR PO SCH (16:37)
[2018-08-30] MEDS: ONDANSETRON HCL INJ 2 MG/ML VIAL IV PRN (20:14)
[2018-08-30] MEDS: MORPHINE SULFATE INJ 4 MG/ML INJ IV PRN (20:14)
[2018-08-30] MEDS: CLONAZEPAM 1 MG TAB PO SCH (20:15)
[2018-08-30] MEDS: RAMIPRIL 5 MG CAP PO SCH (20:15)
[2018-08-30] MEDS: ATORVASTATIN 10 MG TAB PO SCH (20:15)
[2018-08-30] MEDS: ASPIRIN 81 MG ENTERIC COATED PO SCH (20:15)
[2018-08-30] MEDS: METOPROLOL TARTRATE 25 MG TAB PO SCH (20:16)
[2018-08-31 00:11] VITALS: BP 115/67
[2018-08-31] MEDS: CEFTRIAXONE SOD 1 GM VIAL IV SCH ×2 (03:00→14:46)
[2018-08-31 04:00] VITALS: BP 112/57
[2018-08-31] MEDS: METRONIDAZOLE 500MG/NS 100ML IV SCH ×4 (05:08→17:50)
[2018-08-31] MEDS: VANCOMYCIN 250MG/5ML ORAL SOLN PO SCH ×4 (05:08→17:50)
[2018-08-31 07:58] VITALS: BP 127/58
[2018-08-31 08:00] VITALS: BP 127/58
[2018-08-31] MEDS: DICYCLOMINE HCL 20 MG TAB PO SCH ×3 (08:20→17:50)
[2018-08-31] MEDS: CITALOPRAM HYDROBROMIDE 20 MG TAB PO SCH (08:20)
[2018-08-31] MEDS: NICOTINE 21 MG/EA PATCH TOP SCH (08:20)
[2018-08-31] MEDS: FERROUS SULFATE 325 MG TAB PO SCH (08:20)
[2018-08-31] MEDS: UBIDECARENONE 10 MG PO SCH (08:20)
[2018-08-31] MEDS: MULTIVITAMINS/MINERALS TAB PO SCH (08:20)
[2018-08-31 12:07] VITALS: BP 130/59
[2018-08-31] MEDS ORDERED: SODIUM CHLORIDE 0.9% 50ML 50 ML ONE (14:35)
[2018-08-31 16:21] VITALS: BP 130/65
[2018-08-31] MEDS: POTASSIUM CHLORIDE 20 MEQ TAB CR PO SCH (17:50)
--- NOTE | 2018-10-05 03:14 | Discharge Summary ---
CHIEF COMPLAINT: Acute C. diff, hypokalemia. FINAL DIAGNOSES 1. Clostridium difficile colitis. 2. Hypertension. 3. Major depressive disorder/anxiety. DISPOSITION: Home. HOSPITAL COURSE: A 67-year-old female with known history of hypertension, renal artery stenosis, brought to the ER with 1-week history of generalized abdominal discomfort and worsening diarrhea. She underwent review in the ER. Studies were showing evidence of C. diff colitis. She did receive a course of p.o. antibiotics 1 week prior to the diarrhea for acute bronchitis. With further review, she was found to have a grade 3/6 systolic murmur. Abdomen was revealing moderate right and left lower quadrant tenderness, and further management led to admission for care regarding generalized abdominal pain, C. diff colitis, coronary artery disease, and morbid obesity. We began IV fluids. Was started on p.o. vancomycin. Began IV fluids. Once admitted, regarding the presence of C. diff colitis, she was being reviewed also with GI through Dr. Fransico Cortez. With his evaluation, his impression was C diff colitis, continue current care; hypokalemia, currently being supplemented. Agree with care. She was continued on a clear liquid diet. Continues to have the loose stools. She was receiving Flagyl. Continue with the potassium replenishment. On the p.o. vancomycin. Daily medications were continued as well. She was also given morphine for pain control. Noted on August 26, 2018, that her potassium was 2.9, white cell count was 12,700. On August 27, 2018, she was beginning to feel better. Noted to have Hemoccult-positive stools. Urinalysis was showing Gram stain of gram-negative rods. She was being started on ceftriaxone. Continued to have significant diarrhea. Bentyl was now being added. She was continuing to show improvement. She was eager to go home. Her stools began to form up. Her IV antibiotics now were being adjusted over to p.o. status. She began having less and less BMs per day, tolerating her GI soft diet. Stools were now being rechecked for C. diff, returning negative. She was being cleared for discharge. She will be followed up further on outpatient basis. She was released on August 31, 2018, in stable condition. With discharge, she will continue on her diet as directed. No equipment or supplies necessary. No drains or Herzog needed. Activity level as directed by myself as well as by Dr. Fransico Cortez. She was given a prescription for 1. Flagyl 500 mg 1 tablet p.o. t.i.d., #21. 2. Levaquin 500 mg 1 tablet p.o. daily, #7. 3. Benadryl 20 mg 1 tablet p.o. q.i.d. a.c. and nightly, 120. 4. NicoDerm patch 21 mg 1 patch q.24 h. 5. She will also continue on aspirin 81 mg daily. 6. Lipitor 10 mg daily. 7. Calcium carbonate/vitamin D 1 tablet twice a day. 8. Citalopram 40 mg twice a day. 9. Clonazepam 2 mg at bedtime. 10. Vitamin B12 500 mcg tablet 1 daily. 11. Ferrous sulfate 325 mg daily. 12. Glucosamine chondroitin 1500 mg 2 tablets daily. 13. Metoprolol tartrate 25 mg at bedtime. 14. Multivitamins with minerals 1 tablet daily. 15. Ramipril 10 mg daily. 16. Coenzyme-Q10, ten mg daily. She has no documented PCP on her demographic sheet. She was requested to follow up with me in my office within 2 weeks for evaluation. Instructed to call if she has any further concerns or questions or she has any recurrence of symptoms. Dictated By: ANNETTE Pedro Job#: [id number]
[2018-10-07] MEDS ORDERED: POTASSIUM CHLO20 ME1 PO (12:53)
[2018-10-07] MEDS ORDERED: PROBIOTIC & AC1 EACH PO (12:53)
== END 2018-08-31 18:50 | disposition home or self-care (01) | DRG 872 ==
LOC: ER 10:45 → ERHOLD 17:59 → MED/SURG3 19:50
DX: A41.89 Other specified sepsis (principal); A04.72 Enterocolitis due to Clostridium difficile, not specified as recurrent; N39.0 Urinary tract infection, site not specified; R65.20 Severe sepsis without septic shock; E87.6 Hypokalemia; I10 Essential (primary) hypertension; F41.9 Anxiety disorder, unspecified; E11.9 Type 2 diabetes mellitus without complications; B96.89 Other specified bacterial agents as the cause of diseases classified elsewhere; B96.1 Klebsiella pneumoniae [K. pneumoniae] as the cause of diseases classified elsewhere; F32.9 Major depressive disorder, single episode, unspecified
CPT/HCPCS: 36415; 74177; 80048; 80053; 81001; 82150; 82270; 83690; 85025; 87045; 87086; 87186; 87493; 99284; J0696; J2270; J2405; J7030; Q9967

== ENCOUNTER → 2018-10-13 | Day surgery (SDC) | payer BC ==
[2018-10-07 13:30] LABS: BASOPHILS % 0.5 % (0.0-1.0); EOSINOPHILS # (AUTO) 0.2 (0.0-0.4); EOSINOPHILS % 2.6 % (0.0-6.0); HEMOGLOBIN 11.8 g/dL (12.0-16.0); LYMPHOCYTES # (AUTO) 1.6 (1.0-3.2); LYMPHOCYTES % 24.1 % (18.0-39.1); MEAN CORPUSCULAR HEMOGLOBIN 31.7 pg (28-32); MEAN CORPUSCULAR HGB CONC 32.8 g/dL (31-35); MEAN CORPUSCULAR VOLUME 96.8 fL (81-99); MONOCYTES # (AUTO) 0.6 (0.2-0.8); MONOCYTES % 8.7 % (4.4-11.3); NEUTROPHILS # (AUTO) 4.2 (2.1-6.9); NEUTROPHILS % 63.8 % (38.7-80.0); PLATELET COUNT 219 x10e3/uL (140-360); RED BLOOD COUNT 3.72 x10e6/uL (3.6-5.1); RED CELL DISTRIBUTION WIDTH 12.4 % (11.7-14.4)
[~2018-10-13] MED LIST changes: +CLONAZEPAM0.5 MG PO; +CLONAZEPAM1 MG PO; +COENZYME Q1010 MG PO; +FENTANYL CITRATE/PF 100MCG/2 ML INJ ONE; +FERROUS SULFAT325 MG PO; +HYOSCYAMINE SULFATE 0.5 MG/ML INJ ONE; +METOPROLOL TART25 MG PO; +MIDAZOLAM HCL 2 MG/2 ML VIAL ONE; +MULTIVITAMINS1 EAC5 PO; +POTASSIUM CHLO20 ME1 PO; +PROBIOTIC & AC1 EACH PO; +PROPOFOL IV EMULSION 10 MG/ML 50 ML VIAL ONE
--- OUTSIDE RECORDS SUMMARY | 2018-10-13 07:10 | XMS REPORT | Clinical Summary ---
Author Author [facility] Address Unknown Phone Unavailable Care Team Providers Care Nurse Examiner Name Role Phone Laureen Miranda DO PCP Allergies Not on File Medications Not on file Active Problems Not on file Encounters Care Team Description Date Type Specialty Laureen Miranda, Transient arthropathy, pelvic region and thigh, right 01/12/2018 Hospital Radiology Encounter Laureen Miranda DO Low back pain, unspecified back pain laterality, unspecified chronicity, with sciatica presence unspecified 01/12/2018 Hospital Radiology Encounter Laureen Miranda DO Postmenopausal status (age-related) (natural) 01/12/2018 Hospital Radiology Encounter Laureen Miranda, Low back pain, unspecified back pain laterality, unspecified chronicity, with sciatica presence unspecified (Primary Dx); Transient arthropathy, pelvic region and thigh, right 01/12/2018 Transcribe Radiology Orders Laureen Miranda DO Postmenopausal status (age-related) (natural) (Primary Dx) 01/11/2018 Transcribe Access Orders Laureen Miranda DO Screening breast examination 11/10/2017 Hospital Radiology Encounter after 10/12/2017 Social History Date Tobacco Use Types Packs/Day Years Used Never Assessed Sex Assigned at Date Recorded Not on file Industry Job Start Date Occupation Not on file Not on file Not on file Travel End Travel History Travel Start No recent travel history available. Last Filed Vital Signs Not on file Plan of Treatment Health Maintenance Due Date Last Done Comments CERVICAL CANCER SCREENING 1973 COLON CANCER SCREENING 2002 SHINGLES VACCINES (2002 2) PNEUMOCOCCAL 2017 POLYSACCHARIDE VACCINE AGE 65 AND OVER PNEUMOCOCCAL-13 2017 INFLUENZA VACCINE 05/18/2018 BREAST CANCER SCREENING 11/10/2019 11/10/2017 Procedures Comments Procedure Name Priority Date/Time Associated Diagnosis XR HIP 4 VIEWS RIGHT Routine 01/12/2018 Transient arthropathy, 12:26 PM CDT pelvic region and thigh, right XR LUMBAR SPINE COMPLETE Routine 01/12/2018 Low back pain, 4+ VW 12:25 PM CDT unspecified back pain laterality, unspecified chronicity, with sciatica presence unspecified BONE DENSITY Routine 01/12/2018 Postmenopausal status 11:42 AM CDT (age-related) (natural) MAMMO SCREENING W CAD Routine 11/10/2017 Screening breast 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 There is no breakage or displacement of the hardware. The sacroiliac joints are unremarkable. The iliac, pubic and ischial bones are unremarkable. The left hip is incidentally unremarkable. [id number] Procedure Note Hm Interface, Radiology Results Incoming [...] unremarkable. The left hip is incidentally unremarkable. [id number] Performing Organization Address City/State/Zipcode Phone Number [facility] [address] [place] [address] * XR Lumbar Spine Complete 4+ Vw (01/12/2018 12:25 PM CDT) Narrative Performed At EXAMINATION:XR LUMBAR SPINE COMPLETE [...] There is no evidence of compression fracture. [facility]-[id number] Procedure Note Hm Interface, Radiology Results Incoming [...] There is no evidence of compression fracture. [facility]-[id number] Performing Organization Address City/State/Zipcode Phone Number [facility] [address] [place] [address] * Bone Density (01/12/2018 11:42 AM CDT) Narrative Performed At EXAMINATION[facility] CLINICAL H[facility]ORY:Z78.0 Asymptomatic menopausal state, postmenopausal status [...] or below -2.5 (osteoporosis, increased fracture risk) [facility]-[id number] Procedure Note Interface, Radiology Results Incoming - [...] or below -2.5 (osteoporosis, increased fracture risk) [facility]-[id number] Performing Organization Address City/State/Zipcode Phone Number [facility] [address] [place] [address] * Mammo Screening w Cad Bilateral (11/10/2017 10:44 AM EMBOSSOGRAPH OPERATOR) Narrative Performed At PROCEDURE: [facility]AMMO [facility] Computer-assisted detection was utilized inthe interpretation of this exam. COMPARISON: No prior outside facility mammograms from [facility] TECHNIQUE: Bilateral digital screening [...] imaging. This facility is accredited by [employer] for Mammography. A negative x-ray report should not delay biopsy if a dominant or clinically suspicious mass is present. Not all cancers are identified by x-ray. [id number] Performing Organization Address City/State/Zipcode Phone Number [facility] [address] [place] [address] after 10/12/2017 Insurance Payer Benefit Subscriber ID Type Phone Address Plan / Group BCBS BCBS xxxxxxxxxxxx PPO CHOICE PPO/[employer] PPO Advance Directives Patient has advance care planning documents on file. For more information, jone dodge contact: Elijah Blank [address] [place] [address]
[2018-10-13 10:20] VITALS: BP 130/47
[2018-10-13 11:04] LABS: WBC,FECAL (FECAL LACTOFERRIN) NEGATIVE (NEGATIVE)
--- NOTE | 2018-10-13 13:23 | Operative Report ---
DATE OF PROCEDURE: October 13, 2018 REFERRING PHYSICIAN: Dr. Gaudencio Conway. PROCEDURES PERFORMED: 1. Esophagogastroduodenoscopy with biopsies. 2. Colonoscopy with biopsies. INDICATIONS FOR ESOPHAGOGASTRODUODENOSCOPY: Upper abdominal pain, nausea, bloating. INDICATIONS FOR COLONOSCOPY: Surveillance colonoscopy, personal history of colon polyps, lower abdominal pain, diarrhea. MEDICATION: Patient was done under MAC. Please see anesthesiologist's note. PROCEDURE: With the patient in the left lateral decubitus position, the flexible fiberoptic Olympus gastroscope was introduced into the esophagus under direct visualization without any difficulty. There was some patchy erythema noted in the distal esophagus. The scope was then advanced with ease into the stomach, and patient appears to be status post Doc-en-Y. The gastric stump revealed some patchy intense erythema and low-grade to moderate edema, and biopsies were obtained. The enteric loop was patent. The scope was then retroflexed into the gastric stump, and mucosa overlying the fundus and the cardia appeared to be within normal limits. The scope was then straightened out. It was subsequently withdrawn. Patient tolerated the procedure well. IMPRESSION: 1. Distal esophagitis, mild. 2. Stump gastritis, biopsied. Biopsies sent to stain for H. pylori. 3. Status post Doc-en-Y, anastomosis intact. PLAN: Follow up histology. Initiate Protonix 40 mg 1 p.o. q.a.m. a.c. Patient was then turned around and after adequate lubrication of the anal canal, a flexible fiberoptic Olympus colonoscope was inserted into the rectum with ease and advanced all the way to the cecum. The ileocecal valve appeared to be within normal limits, and that was intubated and the scope was advanced into the terminal ileum. Biopsies were obtained. The scope was then withdrawn back into the colon. It was then withdrawn slowly, and the mucosa overlying the ascending, transverse, descending, sigmoid and rectum revealed some mild patchy inflammatory changes, and multiple random biopsies were obtained. The scope was then retroflexed into the distal rectum and small internal hemorrhoids were noted, none of which was actively bleeding. The scope was then straightened out. It was subsequently withdrawn after securing an adequate stool specimen that was sent for the appropriate stool studies. Patient tolerated the procedure well. IMPRESSION: 1. Patchy mild colitis. 2. Proctitis, mild. 3. Internal hemorrhoids, none actively bleeding. PLAN: Follow up histology. Follow up stool studies. Initiate Bentyl 10 mg 1 p.o. t.i.d. Patient might benefit from a followup colonoscopy in 3 to 5 years. Job#: [id number] EV cc:GAUDENCIO CONWAY MD
[2018-10-13 14:53] LABS: C DIFFICILE TOXIN A&B AMP PROB NEGATIVE (NEGATIVE)
== END | disposition home or self-care (01) ==
LOC: ENDO 07:08
PROVIDERS: ATTEND Internal Medicine Gastroenterology
DX: K52.9 Noninfective gastroenteritis and colitis, unspecified (principal); K29.60 Other gastritis without bleeding; K20.8 Other esophagitis; K62.89 Other specified diseases of anus and rectum; K57.30 Diverticulosis of large intestine without perforation or abscess without bleeding; K64.8 Other hemorrhoids; Z98.84 Bariatric surgery status; I20.9 Angina pectoris, unspecified; I10 Essential (primary) hypertension; E78.00 Pure hypercholesterolemia, unspecified; F32.9 Major depressive disorder, single episode, unspecified; F41.9 Anxiety disorder, unspecified; F17.210 Nicotine dependence, cigarettes, uncomplicated; Z01.810 Encounter for preprocedural cardiovascular examination; Z01.812 Encounter for preprocedural laboratory examination; Z79.82 Long term (current) use of aspirin; Z68.39 Body mass index [BMI] 39.0-39.9, adult
CPT/HCPCS: 36415; 43239; 45380; 83630; 83993; 85025; 87045; 87177; 87328; 87493; 93005; J1980; J2250

== ENCOUNTER → 2022-07-21 | Day surgery (SDC) | payer BC, OTHER ==
[2022-07-20 13:02] LABS: BASOPHILS % 0.4 % (0.0-1.0); EOSINOPHILS # (AUTO) 0.2 (0.0-0.4); EOSINOPHILS % 2.1 % (0.0-6.0); HEMATOCRIT 41.7 % (34.2-44.1); HEMOGLOBIN 13.5 g/dL (12.0-16.0); LYMPHOCYTES # (AUTO) 1.9 (1.0-3.2); LYMPHOCYTES % 25.7 % (18.0-39.1); MEAN CORPUSCULAR HEMOGLOBIN 30.6 pg (28-32); MEAN CORPUSCULAR HGB CONC 32.4 g/dL (31-35); MEAN CORPUSCULAR VOLUME 94.6 fL (81-99); MONOCYTES # (AUTO) 0.6 (0.2-0.8); MONOCYTES % 8.2 % (4.4-11.3); NEUTROPHILS # (AUTO) 4.6 (2.1-6.9); NEUTROPHILS % 63.3 % (38.7-80.0); PLATELET COUNT 244 x10e3/uL (140-360); RED BLOOD COUNT 4.41 x10e6/uL (3.6-5.1); RED CELL DISTRIBUTION WIDTH 11.6 % (11.7-14.4)
[~2022-07-21] MED LIST changes: +CARVEDILOL12.5 MG PO; -FENTANYL CITRATE/PF 100MCG/2 ML INJ ONE; +GLUCAGON FOR INJ 1 MG VIAL ONE; +HYDROCHLOROTHIA25 MG PO; +HYDROCODON-ACE1 EA12 PO; +HYDROCODON-ACE1 EAC9 PO; +POVIDONE IODINE 0.05% 0.05 % ML PO ONE; +PROPOFOL IV EMULSION 10 MG/ML 20 ML VIAL ONE; -PROPOFOL IV EMULSION 10 MG/ML 50 ML VIAL ONE; +PROZAC40 MG PO; +ZYRTEC10 M3 PO
[2022-07-21 14:10] VITALS: BP 117/69
== END | disposition home or self-care (01) ==
LOC: OR 10:58
PROVIDERS: ATTEND Internal Medicine Gastroenterology
DX: K29.70 Gastritis, unspecified, without bleeding (principal); D12.3 Benign neoplasm of transverse colon; K20.90 Esophagitis, unspecified without bleeding; K59.00 Constipation, unspecified; K21.9 Gastro-esophageal reflux disease without esophagitis; K64.8 Other hemorrhoids; Z98.84 Bariatric surgery status; E78.5 Hyperlipidemia, unspecified; I10 Essential (primary) hypertension; F41.9 Anxiety disorder, unspecified; F32.A Depression, unspecified; Z01.810 Encounter for preprocedural cardiovascular examination; Z01.812 Encounter for preprocedural laboratory examination; Z79.899 Other long term (current) drug therapy
CPT/HCPCS: 36415; 43239; 45385; 85025; 93005; C9113; J1610; J1980; J2250; J2704